=== PATIENT | male | born 1995 | race Caucasian/White ===

== ENCOUNTER 2017-04-29 17:33 | Emergency (ER) | payer OTHER ==
[~2017-04-29] VITALS: Ht 177.8 cm; Wt 75.0 kg
[2017-04-29 17:42] VITALS: BP 150/89; PULSE 130; RESP 20; O2SAT 100
--- NOTE | 2017-04-29 18:32 | ED.REPORT ---
HPI-Psychiatric Illness Date of Service Apr 29, 2017 ED Provider: Matthew Shaw DO Pt is an otherwise healthy 22 year old male who presents to the ED via police after being found in a random house with a 1 year old child. The homeowners told the pt to leave and called the police. He had put the 1 year old in a car parked in the resident's yard, left the child, and walked down the street. CPS was called and have possession of the child. The pt is meditating in his room and refusing to talk to the police. He denies suicidal and homicidal ideations. Per family, the pt has no psychiatric history. He does admit to using some sort of marijuana based product. Onset of his symptoms. This was a new product and he has never used it before. Per pt, he was having intermittent abdominal pain when he was driving to get [place] the [place]. 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 He was then found at a random person's house with his daughter, and he reports that he does not know what happened. HPI was primarily obtained from ED summary report. Nursing Notes Stated Complaint: MENTAL EVAL Chief Complaint: Psychiatric Complaint Nursing Notes Reviewed: Yes Allergies: Coded Allergies: No Known Allergies (Unverified , 04/29/17) General Time Seen by MD: 18:32 Chief Complaint Other (Mental evaluation) Hx Obtained From: Police Arrived By: Police Onset Occurred: Just prior to arrival Symptom Duration: Duration unknown Severity: Current: No pain currently Severity: Maximum: No pain Recent Healthcare: No recent doctor visit, No recent hospitalization Similar Sx Previous: No Risk-Psychiatric Illness Suicide Risk Stratification Suicide Risk Factors - Adult: No: Prior psych admission RF Statements: Risk factors reviewed Past Medical History Past Medical History Denies - Healthy Denies: Congestive heart failure, Diabetes mellitus, Hypertension Past Surgical History Denies Smoking History Unknown if Ever Smoker Social History Denies Ambulatory Status Independent Review of Systems Constitutional: Denies: Fever Respiratory: Denies: Non-productive cough, Shortness of breath Psychiatric: Denies: Homicidal ideation, Suicidal ideation Complete sys rev & neg: except as marked. Physical Exam Initial Vital Signs Vital Signs (First) Date Time Temp Pulse Resp B/P Pulse Ox O2 Delivery O2 Flow Rate FiO2 04/29/17 17:42 36.7 130 20 150/89 100 Room Air Initial VS: Reviewed Head / Eyes: Atraumatic, Normocephalic, PERRL ENT: Mucous membranes moist, Conjunctiva normal, No scleral icterus Neck: Supple, Full range of motion Respiratory: Breath sounds normal, Clear to auscultation, No respiratory distress Cardiovascular: Regular rate & rhythm, Heart sounds normal, Intact distal pulses Abdomen / GI: Soft, Non-tender Extremities: Vascular intact, Neuro intact Skin: Warm, Dry, No cyanosis General/Constitutional: Awake, Alert, Cooperative, Not toxic appearing Neurologic: Oriented X3, Speech NL, No motor deficits, No sensory deficits Psychiatric: Affect NL, Mood NL, Not suicidal, Not homicidal, Judgment/insight NL Not a threat, mood is normal. Interpretation & Diagnostics CT ABDOMEN: IMPRESSION: No CT evidence of acute abdominal or pelvic pathology. Dictated by: Emanuel Goldsmith M.D. on 04/29/2017 at 21:29 Lab Results Interpretation Result Diagram: 04/29/17190904/29/171909 Test 04/29/17 19:10 04/29/17 20:09 White Blood Count 19.6th/mm3 (3.8-10.1) Red Blood Count 5.02mil/mm3 (4.40-5.80) Hemoglobin 15.8g/dL (13.8-17.2) Hematocrit 43.5% (41.0-50.0) Mean Corpuscular Volume 86.7fL (81-100) Mean Corpuscular Hemoglobin 31.5pg (27.0-35.0) Mean Corpuscular Hemoglobin Concent 36.3% (32.0-37.0) Red Cell Distribution Width 12.6% (12.3-15.4) Platelet Count 324bil/L (150-400) Neutrophils (%) (Auto) 88.9% (40-74) Lymphocytes (%) (Auto) 6.5% (14-46) Monocytes (%) (Auto) 4.2% (4-12) Eosinophils (%) (Auto) 0% (0-5) Basophils (%) (Auto) 0.1% (0-3) Sodium Level 137mEq/L (134-144) Potassium Level 4.2mEq/L (3.5-5.2) Chloride Level 99mEq/L (97-108) Carbon Dioxide Level 19mmol/L (18-29) Blood Urea Nitrogen 15mg/dL (6-20) Creatinine 1.01mg/dL (0.76-1.27) Estimat Glomerular Filtration Rate 97mL/min (>59) Glucose Level 105mg/dL (60-99) Calcium Level 10.5mg/dL (8.5-10.1) Total Bilirubin 0.6mg/dL (0.0-1.2) Aspartate Amino Transf (AST/SGOT) 28U/L (0-50) Alanine Aminotransferase (ALT/SGPT) 24U/L (0-44) Alkaline Phosphatase 54U/L (25-150) Total Creatine Kinase 373U/L (21-232) Total Protein 8.6g/dL (6.4-8.4) Albumin 5.0g/dL (3.4-5.0) Thyroid Stimulating Hormone (TSH) 0.662uIU/mL (0.450-4.500) Hold Alexander Top Tube Received (Received) Alcohols < 10mg/dL (0-10) Urine Color Yellow (YELLOW) Urine Appearance Clear (CLEAR,HAZY) Urine pH 6.0 (5.0-8.0) Urine Specific Browder <1.005 (1.003-1.035) Urine Protein Negativemg/dL (NEG,TRACE) Urine Glucose (UA) Negativemg/dL (NEGATIVE) Urine Ketones Negativemg/dL (NEGATIVE) Urine Occult Blood Negative (NEGATIVE) Urine Nitrite Negative (NEGATIVE) Urine Bilirubin Negative (NEGATIVE) Urine Urobilinogen Normalmg/dL (NORMAL) Urine Leukocyte Esterase Negative (NEGATIVE) Urine RBC 0-2/hpf (0-2) Urine WBC 0-5/hpf (0-5) Urine Epithelial Cells Few/hpf (NONE-MOD) Urine Crystals None seen (NONE SEEN) Urine Bacteria Few/hpf (NONE-FEW) Urine Hyaline Casts None/lpf (NONE) Urine Granular Casts None seen (NONE SEEN) Urine Waxy Casts None seen (NONE SEEN) Urine Red Blood Cell Casts None seen (NONE SEEN) Urine White Blood Cell Casts None seen (NONE SEEN) Urine Mucus None seen (None Seen) Urine Trichomonas None seen (NONE SEEN) Urine Yeast None (NONE SEEN) Urinalysis Comment None Urine Culture Reflexed Not indicated CT Head Interpretation IMPRESSION: No CT evidence of acute intracranial pathology. Dictated by: Emanuel Goldsmith M.D. on 04/29/2017 at 21:27 Study: Head CT no contrast Interpretation / Wet Read by: Interpret - Radiologist Re-Eval/Medical Decision Med Decision/Clinical Course Demarcus was observed. He was awake alert oriented 4. His speech is rapid and articulate. He had no suicidal or homicidal ideations. He was of sound mind and Body. His Judgment and Affect Seem to Be Normal. His Recent Remote Memory Were Intact. He Did Have an Elevate White Blood Cell Count and History of Abdominal Pain so We CT Does Got It Was Normal. Due To the Fact That He Had This Abnormal Event We CT His Brain As Well That Was Normal. Overall He Did Great. He Wanted to Go Home with His [employer]. Our emergency medical tech Lashay Marroquin evaluated him. She does not feel that he has any psychiatric illness and she thinks it was drug related she does not recommend admission. She recommends drug abscesses that ends. Demarcus agrees with this plan and he was discharged in stable condition. Source of Hx: Old records Re-Evaluation/Progress : Time of Eval: 23:03 )( Re-Eval Psychiatric: No danger to self, No danger to others, No suicidal ideation, No homicidal ideation Re-Evaluation/Progress Note: Pt rechecked. Informed pt of plan for discharge. Pt understands and agrees with plan for discharge. F/U instructions and RTER warnings given. All questions addressed. Counseled Regarding: Diagnosis, Lab results, Need for follow-up, When/why to return to ED Discharge & Departure Shift Change Sign-Out Response to Therapy: Improved Impression: Primary Impression: Acute situational disturbance Additional Impressions: Substance abuse Leukocytosis Leukocytosis type: unspecified Qualified Code: D72.829 - Elevated white blood cell count, unspecified Abdominal pain Abdominal location: generalized Qualified Code: R10.84 - Generalized abdominal pain )( Condition at Discharge: No danger to self, No danger to others, No suicidal ideation, No homicidal ideation Disposition: Home Discharge Condition All VS Reviewed: Yes Condition: Stable Patient Instructions: Acute Abdominal Pain (DC), Brief Psychotic Disorder (ED) Additional Instructions: I strongly recommend that you abstain from THC containing products. You seemed to have some sort of a mild psychotic reaction today. Your labs showed an elevated white blood cell count and your CT scans were normal. Stay with a responsible adult. Set up a follow up with your primary care and [facility]. Return if you feel like you are having a medical or psychiatric emergency. Referrals: [facility] Scribe Attestation Portions of this note were transcribed by Lainey Thorpe. I, Dr. Shaw personally performed the history, physical exam and medical decision-making; I reviewed and confirmed the accuracy of the information in the transcribed note. Signed by: Carol Celis, 04/29/17 and 20:30. copies to: [facility] Matthew Shaw DO Apr 29, 2017 18:32 Lainey Butcher Apr 29, 2017 18:57
[2017-04-29 19:22] LABS: BASOPHILS % (AUTO) 0.1 % (0-3); EOSINOPHILS % (AUTO) 0 % (0-5); MONOCYTES % (AUTO) 4.2 % (4-12); Mean Corpuscular Hemoglobin 31.5 pg (27.0-35.0); Mean Corpuscular Volume 86.7 fL (81-100); NEUTROPHILS % (AUTO) 88.9 % (40-74); Platelet Count 324 bil/L (150-400)
[2017-04-29 19:57] LABS: Creatine Kinase 373 U/L (21-232)
[2017-04-29] MEDS ORDERED: Iohexol 300 mg/mL 30 mL Inj PO ONE (20:10)
[2017-04-29 20:30] LABS: APPEARANCE,URINE CLEAR (CLEAR,HAZY); COLOR,URINE YELLOW (YELLOW); OCCULT BLOOD,URINE NEGATIVE (NEGATIVE); UROBILINOGEN,URINE NORMAL (NORMAL)
[2017-04-29 20:48] VITALS: BP 160/72; PULSE 111; RESP 20; O2SAT 100
--- NOTE | 2017-04-29 21:36 | DRSVH ---
PROCEDURE: CT BRAIN WITHOUT CONTRAST ([id number]) INDICATIONS: altered mental status, leukocytosis, abdominal telly TECHNIQUE: Noncontrast 4.5 mm thick angled axial sections acquired from the foramen magnum to the vertex, with c oronal reformats. COMPARISON: None. FINDINGS: Image quality: Excellent. CSF spaces: Basal cisterns are patent. No extra-axial fluid collections. Ventricles are normal in size and shape. Brain: No midline shift. No intracranial masses or hemorrhage. Zavaleta-white matter interface is norm al. Skull and face: Calvarium and visualized facial bones are intact, without suspicious lesions. Sinuses: Visualized sinuses and mastoids are clear. IMPRESSION: No CT evidence of acute intracranial pathology. Dictated by: Emanuel Goldsmith M.D. on 04/29/2017 at 21:27 Approved by: Emanuel Goldsmith M.D. on 04/29/2017 at 21:29
--- NOTE | 2017-04-29 21:41 | DRSVH ---
PROCEDURE: CT ABDOMEN AND PELVIS WITH CONTRAST ([id number]) INDICATIONS: altered mental status, leukocytosis, abdominal telly TECHNIQUE: After the administration of oral and intravenous contrast, 5 mm thick sections acquired from the diap hragms to the symphysis. 5 mm thick coronal and sagittal reformats were performed. For radiation do se reduction, the following was used: automated exposure control, adjustment of mA and/or kV accordi ng to patient size. COMPARISON: None. FINDINGS: Image quality: Excellent. ABDOMEN: Lung bases: Lung bases are clear. Heart size is normal. Solid organs: Liver and spleen are normal in size and enhancement. Gallbladder is radiographically normal. Biliary system is non-dilated. Pancreas enhances normally. No adrenal nodules. Kidneys ar e normal in size and enhancement, without hydronephrosis. Peritoneum and bowel: Stomach, small bowel, and colon loops are normal in caliber and wall thickness . No free fluid or air. A possible appendix is identified. There are no secondary signs of acute ap pendicitis. Nodes and vessels: No retroperitoneal or mesenteric adenopathy. Aorta and inferior vena cava are no rmal in caliber. Miscellaneous: No ventral hernias. PELVIS: Genitourinary: Bladder wall thickness is normal. Miscellaneous: No inguinal hernias or adenopathy. Bones: No suspicious bony lesions. No vertebral body compression fractures. IMPRESSION: No CT evidence of acute abdominal or pelvic pathology. Dictated by: Emanuel Goldsmith M.D. on 04/29/2017 at 21:29 Approved by: Emanuel Goldsmith M.D. on 04/29/2017 at 21:33
[2017-04-29 22:29] VITALS: BP 141/65; PULSE 91; RESP 20; O2SAT 100
[2017-04-29 23:06] VITALS: BP 141/65; PULSE 91; RESP 20; O2SAT 100
== END 2017-04-29 23:07 | disposition home or self-care (01) ==
LOC: SED 17:33
DX: F43.0 Acute stress reaction (principal); D72.829 Elevated white blood cell count, unspecified; F19.10 Other psychoactive substance abuse, uncomplicated; R10.84 Generalized abdominal pain
CPT/HCPCS: 36415; 70450; 74177; 80053; 81000; 81002; 82075; 82550; 84443; 85025; 99284; G0480; Q9967